=== PATIENT | female | born 1995 ===

== ENCOUNTER 2016-06-24 19:16 | Emergency (ER) | payer MEDICAID ==
[2016-06-24 20:16] VITALS: BMI 24.2
[2016-06-24 20:19] VITALS: RESP 18; TEMP 98.4
[2016-06-24 21:56] LABS: ADD MANUAL DIFF? NO
[2016-06-24 22:00] LABS: URINE BILIRUBIN NEGATIVE (NEGATIVE); URINE BLOOD NEGATIVE (NEGATIVE); URINE GLUCOSE (UA) NEGATIVE (NEGATIVE); URINE KETONE NEGATIVE (NEGATIVE); URINE LEUKOCYTE ESTERASE TRACE Leu/uL (NEGATIVE); URINE PROTEIN NEGATIVE mg/dL (<30 mg/dL)
[2016-06-24 22:04] LABS: BASO # 0.01 K/mm3 (0.0-2.0); BASO % 0.1 % (0.0-3.0); GRAN # 3.84 (1.4-6.5); GRAN % 57.6 % (50.0-68.0); HEMATOCRIT 35.6 % (36.0-48.0); LYMPH # 2.5 (1.2-3.4); LYMPH % 37.8 % (22.0-35.0); MEAN CELL VOLUME 78.2 fL (80.0-105.0); MEAN CORPUSCULAR HEMOGLOBIN 25.3 pg (25.0-35.0); MEAN CORPUSCULAR HGB CONC 32.3 g/dl (31.0-37.0); MEAN PLATELET VOLUME 10.5 fl (7.0-11.0); MONO # 0.3 (0.1-0.6); MONO % 4.5 % (1.0-6.0); PLATELET COUNT 242 10^3/uL (120.0-450.0); RED CELL DISTRIBUTION WIDTH 14.2 % (11.5-14.5); WHITE BLOOD COUNT 6.7 10^3/ul (4.5-11.0)
[2016-06-24 22:06] LABS: URINE APPEARANCE SLIGHT-CLOUDY (CLEAR); URINE COLOR YELLOW (YELLOW)
[2016-06-24 22:13] LABS: ALB/GLOB RATIO 1.2 (1.1-1.8); ALKALINE PHOSPHATASE 59 U/L (38-133); ALT/SGPT 50 U/L (7-56); AST/SGOT 47 U/L (15-39); BLOOD UREA NITROGEN 13 mg/dL (7-21); CALCIUM 9.4 mg/dL (8.4-10.5); CARBON DIOXIDE 27 mmol/L (21-33); CHLORIDE 100 mmol/L (98-107); GFR AFRICAN-AMERICAN > 60; GLUCOSE,RANDOM 89 mg/dL (70-110); LIPASE 87 U/L (23-300); POTASSIUM 4.3 mmol/L (3.6-5.0); SODIUM 138 mmol/L (132-148); TOTAL PROTEIN 8.2 g/dL (5.8-8.3)
[2016-06-24] MEDS ORDERED: Iohexol 350 MG/100 ML VIAL ONE (22:18)
[2016-06-24 22:46] LABS: URINE RBC 0 - 2 /hpf (0-2)
--- NOTE | 2016-06-25 01:27 | US ---
EXAM: US Pelvis Complete, Transabdominal. CLINICAL HISTORY: 20 years old, female; Pain; Pelvic pain; Additional info: Abd pain TECHNIQUE: Real-time transabdominal pelvic ultrasound (complete) with image documentation. COMPARISON: CT - ABD PELVIS IV CONTRAST ONLY 06/24/2016 10:42:56 PM FINDINGS: Uterus/cervix: Uterus measures 7.3 x 3.5 x 4.9 cm in size. No myometrial mass. Endometrium: 1.2 cm in thickness. Right ovary: 2.9 x 3.9 x 1.7 cm in size. 2.0 x 2.2 x 1.2 cm anechoic lesion. Small follicles. Normal flow. Left ovary: 2.8 x 1.6 x 2.4 cm in size. No mass. Small follicles. Normal flow. Free fluid: Trace free fluid within pelvis. Bladder: Unremarkable as visualized. IMPRESSION: 1. RIGHT ovarian cyst. 2. Incidental/non-acute findings are described above. EXAM: US Pelvis, Transvaginal. CLINICAL HISTORY: 20 years old, female; Pain; Pelvic pain; Additional info: Abd pain TECHNIQUE: Real-time transvaginal pelvic ultrasound (complete) with image documentation. Transvaginal imaging was used for better evaluation of the endometrium and adnexa. COMPARISON: CT - ABD PELVIS IV CONTRAST ONLY 06/24/2016 10:42:56 PM FINDINGS: Uterus/cervix: Uterus measures 7.3 x 3.5 x 4.9 cm in size. No myometrial mass. Endometrium: 1.2 cm in thickness. Right ovary: 2.9 x 3.9 x 1.7 cm in size. 2.0 x 2.2 x 1.2 cm anechoic lesion. Small follicles. Normal flow. Left ovary: 2.8 x 1.6 x 2.4 cm in size. No mass. Small follicles. Normal flow. Free fluid: Trace free fluid within pelvis. Bladder: Empty bladder which cannot be evaluated with this probe.
--- NOTE | 2016-06-25 01:52 | ED PDOC ---
Arrival/HPI - General Chief Complaint: Abdominal Pain Time Seen by Provider: 06/24/16 20:49 Historian: Patient - History of Present Illness Narrative History of Present Illness (Text): 06/25/16 01:43 20-year-old female presents today complaining of severe diffuse abdominal pain greatest in the lower quadrants of the abdomen. Patient also complaining of epigastric pain for the past 2 days. Patient states she was seen by her primary care physician last week for abdominal pain and took Imodium and since then she has been having hard stools. Patient also complaining of hemorrhoids. No chest pain or shortness of breath. Denies back pain. Denies fevers or chills. Denies vaginal discharge or vaginal bleeding. Denies urinary symptoms. Past Medical History - Provider Review Nursing Documentation Reviewed: Yes - Travel History Have you recently traveled outside [place] w/in the past 3 mons?: No - Past History Past History: No Previous - Infectious Disease Hx of Infectious Diseases: None - Tetanus Immunization Tetanus Immunization: Unknown - Cardiac Hx Cardiac Disorders: No - Pulmonary Hx Respiratory Disorders: No - Neurological Hx Neurological Disorder: No - HEENT Hx HEENT Disorder: No - Renal Hx Renal Disorder: No - Endocrine/Metabolic Hx Endocrine Disorders: No - Hematological/Oncological Hx Blood Disorders: No - Integumentary Hx Dermatological Disorder: No - Musculoskeletal/Rheumatological Hx Musculoskeletal Disorders: No - Gastrointestinal Hx Gastrointestinal Disorders: No - Genitourinary/Gynecological Hx Genitourinary Disorders: No - Psychiatric Hx Depression: No Hx Emotional Abuse: No Hx Physical Abuse: No Hx Substance Use: No - Past Surgical History Past Surgical History: No Previous - Surgical History Hx Tonsillectomy: Yes Other/Comment: devaited septum. - Anesthesia Hx Anesthesia: No Hx Anesthesia Reactions: No Hx Malignant Hyperthermia: No - Suicidal Assessment Feels Threatened In Home Enviroment: No Family/Social History - Physician Review Nursing Documentation Reviewed: Yes Family/Social History: Unknown Family HX Smoking Status: Never Smoked Hx Alcohol Use: No Hx Substance Use: No Allergies/Home Meds Allergies/Adverse Reactions: Allergies No Known Allergies Allergy (Verified 06/24/16 20:19) Review of Systems - Review of Systems Constitutional: absent: Fatigue, Fevers Respiratory: absent: SOB, Cough Cardiovascular: absent: Chest Pain, Palpitations Gastrointestinal: Abdominal Pain, Constipation. absent: Nausea, Vomiting Genitourinary Female: absent: Dysuria, Frequency, Hematuria Musculoskeletal: absent: Arthralgias, Back Pain, Neck Pain Skin: absent: Rash, Pruritis Neurological: absent: Headache, Dizziness Psychiatric: absent: Anxiety, Depression Physical Exam Vital Signs Reviewed: Yes Vital Signs Temp Pulse Resp BP Pulse Ox 06/25/16 00:30 60 18 131/63 99 06/24/16 20:15 98.4 F 85 18 104/69 100 Temperature: Afebrile Blood Pressure: Normal Pulse: Regular Respiratory Rate: Normal Appearance: Positive for: Well-Appearing, Non-Toxic, Comfortable Pain Distress: None Mental Status: Positive for: Alert and Oriented X 3 - Systems Exam Head: Present: Atraumatic Mouth: Present: Moist Mucous Membranes Neck: Present: Normal Range of Motion Respiratory/Chest: Present: Clear to Auscultation, Good Air Exchange. No: Respiratory Distress, Accessory Muscle Use Cardiovascular: Present: Regular Rate and Rhythm, Normal S1, S2. No: Murmurs Abdomen: Present: Tenderness (+ epigastric tenderness, + rlq and llq tenderness. ), Normal Bowel Sounds, Guarding. No: Distention, Peritoneal Signs , Rebound Rectal: Present: Hemorrhoids, Normal Rectal Tone. No: Gross Blood, Fissures Back: Present: Normal Inspection Neurological: Present: GCS=15, Speech Normal Skin: Present: Warm, Dry, Normal Color. No: Rashes Psychiatric: Present: Alert Medical Decision Making ED Course and Treatment: 06/25/16 01:45 Patient is nontoxic well appearing with stable vital signs presenting with upper and lower abdominal pain CBC wnl CMP wnl Lipase wnl Urinalysis wnl Ultrasound: FINDINGS: Uterus/cervix: Uterus measures 7.3 x 3.5 x 4.9 cm in size. No myometrial mass. Endometrium: 1.2 cm in thickness. Right ovary: 2.9 x 3.9 x 1.7 cm in size. 2.0 x 2.2 x 1.2 cm anechoic lesion. Small follicles. Normal flow. Left ovary: 2.8 x 1.6 x 2.4 cm in size. No mass. Small follicles. Normal flow. Free fluid: Trace free fluid within pelvis. Bladder: Unremarkable as visualized. IMPRESSION: 1. RIGHT ovarian cyst. 2. Incidental/non-acute findings are described above. EXAM: US Pelvis, Transvaginal. CT - ABD PELVIS IV CONTRAST ONLY 06/24/2016 10:42:56 PM FINDINGS: Uterus/cervix: Uterus measures 7.3 x 3.5 x 4.9 cm in size. No myometrial mass. Endometrium: 1.2 cm in thickness. Right ovary: 2.9 x 3.9 x 1.7 cm in size. 2.0 x 2.2 x 1.2 cm anechoic lesion. Small follicles. Normal flow. Left ovary: 2.8 x 1.6 x 2.4 cm in size. No mass. Small follicles. Normal flow. Free fluid: Trace free fluid within pelvis. Bladder: Empty bladder which cannot be evaluated with this probe. IMPRESSION: 1. RIGHT ovarian cyst. 2. Incidental/non-acute findings are described above. CAT scan: FINDINGS: Lower thorax: No acute findings. ABDOMEN: Liver: Unremarkable. No mass. Gallbladder and bile ducts: Unremarkable. No calcified stones. No ductal dilation. Pancreas: Unremarkable. No mass. No ductal dilation. Spleen: Unremarkable. No splenomegaly. Adrenals: Unremarkable. No mass. Kidneys and ureters: Unremarkable. No solid mass. No hydronephrosis. Stomach and bowel: Unremarkable. No obstruction. No mucosal thickening. Appendix: Normal appendix. PELVIS: Bladder: Unremarkable. No mass. Reproductive: Right 3.3 cm cystic structure in the expected location of the adnexa could reflect a follicle, cyst, or less likely cystic neoplasm. Clinical correlation recommended. ABDOMEN and PELVIS: Intraperitoneal space: Small pelvic fluid. No free air. Bones/joints: No acute fracture. No dislocation. Soft tissues: Unremarkable. Vasculature: Unremarkable. No abdominal aortic aneurysm. Lymph nodes: Unremarkable. No enlarged lymph nodes. IMPRESSION: 1. Right 3.3 cm cystic structure in the expected location of the adnexa could reflect a follicle, cyst, or less likely cystic neoplasm. Clinical correlation recommended. 2. Normal appendix. Patient reassessment: pt feeling better after pepcid; Discussed all results with patient in depth. advised increasing fluids advised increasing fiber. tylenol for pain. 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 return if symptoms worsen,persist or if new symptoms develop. Impression: Abdominal pain, ovarian cyst, hemorrhoid Tylenol every 4 hours as needed for pain Pepcid one tablet daily Follow-up with a GI doctor within the next 2 days Anusol apply twice daily as needed for external use only Increase fluids, increase fiber Follow up with primary care physician within the next 2 days Return immediately if symptoms worsen persist or if new symptoms develop: High fevers, increasing pain, vomiting, diarrhea or any other concerning symptoms develop - Lab Interpretations Lab Results: 06/24/16 21:50 06/24/16 21:50 Lab Results 06/24/16 21:50: WBC 6.7, RBC 4.55, Hgb 11.5 L, Hct 35.6 L, MCV 78.2 L, MCH 25.3 , MCHC 32.3, RDW 14.2, Plt Count 242, MPV 10.5, Gran % 57.6, Lymph % (Auto) 37.8 H, [place] % (Auto) 4.5, Eos % (Auto) 0.0 L, Baso % (Auto) 0.1, Gran # 3.84, Lymph # 2.5, [place] # 0.3, Eos # 0.0, Baso # 0.01, Sodium 138, Potassium 4.3, Chloride 100, Carbon Dioxide 27, Anion Gap 15, BUN 13, Creatinine 0.6, Est GFR ( Amer) > 60, Est GFR (Non-Af Amer) > 60, Random Glucose 89, Calcium 9.4, Total Bilirubin 1.0, AST 47 H, ALT 50, Alkaline Phosphatase 59, Total Protein 8.2, Albumin 4.5, Globulin 3.7, Albumin/Globulin Ratio 1.2, Lipase 87, Urine Color Yellow, Urine Appearance Slight-cloudy, Urine pH 7.0, Ur Specific [place] 1.015, Urine Protein Negative, Urine Glucose (UA) Negative, Urine Ketones Negative, Urine Blood Negative, Urine Nitrate Negative, Urine Bilirubin Negative , Urine Urobilinogen 1.0 H, Ur Leukocyte Esterase Trace H, Urine RBC 0 - 2, Urine WBC 1 - 3, Ur Epithelial Cells 4 - 5, Urine HCG, Qual Negative - RAD Interpretation Radiology Orders: 06/24/16 22:05 ABD & PELVIS IV CONTRAST ONLY [CT] Stat 06/24/16 23:34 TRANSVAGINAL [US] Stat - Medication Orders Current Medication Orders: Discontinued Medications Famotidine (Pepcid) 20 mg IVP STAT STA Stop: 06/24/16 21:27 Iohexol (Omnipaque 350 100 Ml) Confirm Administered Dose 350 mg .ROUTE .STK-MED ONE Stop: 06/24/16 22:19 Disposition/Present on Arrival - Present on Arrival Any Indicators Present on Arrival: No History of DVT/PE: No History of Uncontrolled Diabetes: No Urinary Catheter: No History of Decub. Ulcer: No History Surgical Site Infection Following: None - Disposition Have Diagnosis and Disposition been Completed?: Yes Diagnosis: Abdominal pain, Ovarian cyst, Acute hemorrhoid Disposition: HOME/ ROUTINE Disposition Time: 01:52 Patient Plan: Discharge Patient Problems: Current Active Problems Problem Status Diagnosed Abdominal pain Acute Acute hemorrhoid Acute Ovarian cyst Acute Condition: GOOD Discharge Instructions (ExitCare): Hemorrhoids (ED), Acute Abdominal Pain (ED) , Ovarian Cyst (ED) Additional Instructions: Tylenol every 4 hours as needed for pain Pepcid one tablet daily Follow-up with a GI doctor within the next 2 days Anusol apply twice daily as needed for external use only Increase fluids, increase fiber Follow up with primary care physician within the next 2 days Return immediately if symptoms worsen persist or if new symptoms develop: High fevers, increasing pain, vomiting, diarrhea or any other concerning symptoms develop Prescriptions: Hydrocortisone 2.5% (Rectal) [Anusol-HC] 1 applic [place] BID #1 tube Famotidine [Pepcid] 20 mg PO DAILY #30 tab Referrals: Ruddy Townsend DO [Staff Provider] - Follow up with primary Gisselle Menendez MD [Primary Care Provider] - Follow up with primary Lucho Burnett MD [Staff Provider] - Follow up with primary
[2016-06-25 02:33] VITALS: BP 107/65; PULSE 62; O2SAT 100
--- NOTE | 2016-06-25 09:30 | CT ---
PROCEDURE: CT Abdomen and Pelvis with contrast HISTORY: abd pain COMPARISON: Transvaginal ultrasound 06/25/2016 study noted TECHNIQUE: Contrast dose: 100 mL of Omnipaque 350 administered intravenously Radiation dose: Total exam DLP = 218 mGy-cm. FINDINGS: LOWER THORAX: Unremarkable. LIVER: Unremarkable. No gross lesion or ductal dilatation. GALLBLADDER AND BILE DUCTS: Unremarkable. PANCREAS: Unremarkable. No gross lesion or ductal dilatation. SPLEEN: Unremarkable. ADRENALS: Unremarkable. No mass. KIDNEYS AND URETERS: Unremarkable. No diffuse hydronephrosis. Minimal right intrarenal pelviectasis - -likely top-normal variant. No prox obstruction source suggested No solid mass. VASCULATURE: Unremarkable. No aortic aneurysm. BOWEL: Unremarkable. No obstruction. No gross mural thickening. APPENDIX: Normal appendix. PERITONEUM: Unremarkable. No free fluid. No free air. LYMPH NODES: Unremarkable. No enlarged lymph nodes. BLADDER: Unremarkable. REPRODUCTIVE: Bilateral adnexal hypodensities are prominent in the right hemipelvis measuring up to approximately 2.3 cm likely relating to a physiologic right ovarian cyst. Adjacent free fluid is present BONES: No acute fracture. Incidental bilateral sacroiliac joint sclerotic changes -iliac side predominating ; [id number] . OTHER FINDINGS: None. IMPRESSION: Probable right ovarian 2 to 2.5 cm physiological cyst with recent rupture/fluid leakage suggested . Similar findings suggested on prior transvaginal ultrasound study. 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
== END 2016-06-25 01:55 | disposition home or self-care (01) ==
LOC: ED 19:16
DX: N83.201 Unspecified ovarian cyst, right side (principal); K64.9 Unspecified hemorrhoids; R10.9 Unspecified abdominal pain
CPT/HCPCS: 74177; 76830; 80053; 81001; 83690; 84703; 85025; 87086; 99283; Q9967

== ENCOUNTER 2018-04-15 13:24 | Inpatient (IN) | payer MEDICAID ==
[2018-04-15 13:26] VITALS: BMI 24.2
[2018-04-15 14:50] LABS: URINE BILIRUBIN NEGATIVE (NEGATIVE); URINE BLOOD TRACE-LYSED (NEGATIVE); URINE GLUCOSE (UA) NEGATIVE (NEGATIVE); URINE LEUKOCYTE ESTERASE NEGATIVE Leu/uL (NEGATIVE); URINE PROTEIN NEGATIVE mg/dL (<30 mg/dL); URINE UROBILINOGEN 0.2 E.U./dL (<1 E.U./dL)
[2018-04-15] MEDS ORDERED: Sodium Chloride 0.9% 1,000 ML IV STA ×3 (14:58→19:10)
[2018-04-15 15:01] LABS: URINE APPEARANCE CLEAR (CLEAR); URINE COLOR YELLOW (YELLOW)
[2018-04-15 15:02] LABS: URINE BACTERIA MOD /hpf; URINE WBC 0 - 2 /hpf (0-6)
--- NOTE | 2018-04-15 15:14 | ED PDOC ---
Arrival/HPI - General Chief Complaint: Abdominal Pain Time Seen by Provider: 04/15/18 13:31 Historian: Patient - History of Present Illness Narrative History of Present Illness (Text): 04/15/18 14:31 22 y/o F, with past medical history of chronic constipation since 4 years, presents to the ED for evaluation of worsening nausea vomiting since this morning. Patient reports history of nausea for past year, which worsened this morning associated with 1 episode of vomiting. Patient additionally informs epigastric and left lower quadrant abdominal pain without any alleviating or worsening factors. Patient reports history of UTI and vaginal spotting, which improved once started on Macrobid recently. Patient denies any other somatic complaints. Patient denies any fevers, chills, headache, dizziness, chest pain, shortness of breath, dyspnea on exertion, cough, diarrhea, back pain, neck pain, or any other complaints. Time/Duration: 4-6 hours Symptom Onset: Gradual Symptom Course: Unchanged Activities at Onset: Light Context: Home Past Medical History - Provider Review Nursing Documentation Reviewed: Yes - Past History Past History: No Previous - Infectious Disease Hx of Infectious Diseases: None - Tetanus Immunization Tetanus Immunization: Unknown - Cardiac Hx Cardiac Disorders: No - Pulmonary Hx Respiratory Disorders: No - Neurological Hx Neurological Disorder: No - HEENT Hx HEENT Disorder: No - Renal Hx Renal Disorder: No - Endocrine/Metabolic Hx Endocrine Disorders: No - Hematological/Oncological Hx Blood Disorders: No - Integumentary Hx Dermatological Disorder: No - Musculoskeletal/Rheumatological Hx Musculoskeletal Disorders: No - Gastrointestinal Hx Gastrointestinal Disorders: No - Genitourinary/Gynecological Hx Genitourinary Disorders: No - Psychiatric Hx Depression: No Hx Emotional Abuse: No Hx Physical Abuse: No Hx Substance Use: No - Past Surgical History Past Surgical History: No Previous - Surgical History Hx Tonsillectomy: Yes Other/Comment: devaited septum. - Anesthesia Hx Anesthesia: No Hx Anesthesia Reactions: No Hx Malignant Hyperthermia: No - Suicidal Assessment Feels Threatened In Home Enviroment: No Family/Social History - Physician Review Nursing Documentation Reviewed: Yes Family/Social History: No Known Family HX Smoking Status: Never Smoked Hx Alcohol Use: No Hx Substance Use: No Allergies/Home Meds Allergies/Adverse Reactions: Allergies ketorolac [From Toradol] Allergy (Verified 04/15/18 16:19) SHORTNESS OF BREATH Review of Systems - Physician Review All systems were reviewed & negative as marked: Yes - Review of Systems Constitutional: absent: Fevers Eyes: absent: Vision Changes Respiratory: absent: SOB, Cough Cardiovascular: absent: Chest Pain Gastrointestinal: Abdominal Pain, Nausea, Vomiting Genitourinary Female: absent: Urine Output Changes Musculoskeletal: absent: Back Pain, Neck Pain Skin: absent: Rash Neurological: absent: Headache, Dizziness Psychiatric: absent: Anxiety Physical Exam Vital Signs Reviewed: Yes Vital Signs Temp Pulse Resp BP Pulse Ox 04/15/18 13:26 97.9 F 95 H 18 101/68 99 Temperature: Afebrile Blood Pressure: Normal Pulse: Regular Respiratory Rate: Normal Appearance: Positive for: Well-Appearing, Non-Toxic, Comfortable Pain Distress: None Mental Status: Positive for: Alert and Oriented X 3 - Systems Exam Head: Present: Atraumatic, Normocephalic Pupils: Present: PERRL Extroacular Muscles: Present: EOMI Conjunctiva: Present: Normal Mouth: Present: Moist Mucous Membranes Neck: Present: Normal Range of Motion Respiratory/Chest: Present: Clear to Auscultation, Good Air Exchange. No: Respiratory Distress, Accessory Muscle Use Cardiovascular: Present: Regular Rate and Rhythm, Normal S1, S2. No: Murmurs Abdomen: Present: Tenderness (Tenderness to palpation to epigastric region). No: Distention, Peritoneal Signs Back: Present: Normal Inspection. No: CVA Tenderness Upper Extremity: Present: Normal Inspection. No: Cyanosis, Edema Lower Extremity: Present: Normal Inspection. No: Edema Neurological: Present: GCS=15, CN II-XII Intact, Speech Normal Skin: Present: Warm, Dry, Normal Color. No: Rashes Psychiatric: Present: Alert, Oriented x 3, Normal Insight, Normal Concentration Medical Decision Making ED Course and Treatment: 04/15/18 14:30 Impression: 22 year old female presents to the ED for evaluation of abdominal pain, nausea and vomiting. Differential Diagnosis included but are not limited to: --Seizure --Cholecystitis --Ovarian cyst --Ovarian torsion Plan: -- Labs -- IV Fluids -- Toradol -- Zofran -- Urine Culture -- Urinalysis -- CT of head -- CT of Abdomen/Pelvis --Pelvic US --Zosyn --Surgery Consult -- Reassess and disposition Prior Visits: Notes and results from previous visits were reviewed. Progress Notes: 04/15/18 14:48 Upon re-evaluation after Toradol, patient expressed slight jerking movement at bedside with nystagmus and post-ictal period. Patient was able to answer questions slowly but correctly. 04/15/18 17:31 CT read reveals evidence of cholecystitis and bilateral ovarian cyst rupture. Pelvic US ordered. Zosyn ordered. Spoke to surgery resident who will come see the patient. 04/15/18 19:[address] Capone(general surgery) who accepts patient onto his service. - Lab Interpretations Lab Results: Urine Color Yellow (YELLOW) 04/15/18 14:30 Urine Appearance Clear (CLEAR) 04/15/18 14:30 Urine pH 7.0 (4.7-8.0) 04/15/18 14:30 Ur Specific [place] 1.020 (1.005-1.035) 04/15/18 14:30 Urine Protein Negative mg/dL (<30 mg/dL) 04/15/18 14:30 Urine Glucose (UA) Negative mg/dL (NEGATIVE) 04/15/18 14:30 Urine Ketones Negative mg/dL (NEGATIVE) 04/15/18 14:30 Urine Blood Trace-lysed (NEGATIVE) H 04/15/18 14:30 Urine Nitrate Negative (NEGATIVE) 04/15/18 14:30 Urine Bilirubin Negative (NEGATIVE) 04/15/18 14:30 Urine Urobilinogen 0.2 E.U./dL (<1 E.U./dL) 04/15/18 14:30 Ur Leukocyte Esterase Negative Foreign/uL (NEGATIVE) 04/15/18 14:30 Urine RBC 2 - 5 /hpf (0-2) H 04/15/18 14:30 Urine WBC 0 - 2 /hpf (0-6) 04/15/18 14:30 Ur Epithelial Cells 4 - 5 /hpf (0-5) 04/15/18 14:30 Urine Bacteria Mod /hpf (NONE) 04/15/18 14:30 Urine Other Uyeast /hpf 04/15/18 14:30 04/15/18 15:00 04/15/18 15:00 Lab Results 04/15/18 17:03: Urine Opiates Screen Negative, Urine Methadone Screen Negative, Ur Barbiturates Screen Negative, Ur Phencyclidine Scrn Negative, Ur Amphetamines Screen Negative, U Benzodiazepines Scrn Negative, U Oth Cocaine Metabols Negative, U Cannabinoids Screen Negative 04/15/18 15:00: Alcohol, Quantitative < 10 04/15/18 15:00: Salicylates < 1 L, Acetaminophen < 10.0 L 04/15/18 15:00: Sodium 139, Potassium 3.7, Chloride 105, Carbon Dioxide 25, Anion Gap 14, BUN 9, Creatinine 0.7, Est GFR ( Amer) > 60, Est GFR (Non- Af Amer) > 60, Random Glucose 74, Calcium 9.3, Magnesium 2.0, Total Bilirubin 0.8, AST 24, ALT 20, Alkaline Phosphatase 54, Total Protein 7.7, Albumin 4.5, Globulin 3.2, Albumin/Globulin Ratio 1.4 04/15/18 15:00: PT 13.6 H, INR 1.19, APTT 25.2 04/15/18 15:00: WBC 11.1 H, RBC 4.46, Hgb 10.3 L, Hct 33.7 L, MCV 75.6 L, MCH 23.1 L, MCHC 30.6 L, RDW 14.3, Plt Count 247, MPV 10.6, Gran % 45.6 L, Lymph % (Auto) 47.3 H, [place] % (Auto) 6.4 H, Eos % (Auto) 0.4 L, Baso % (Auto) 0.3, Gran # 5.09, Lymph # (Auto) 5.3 H, [place] # (Auto) 0.7 H, Eos # (Auto) 0.0, Baso # (Auto) 0.03 04/15/18 14:30: Urine Color Yellow, Urine Appearance Clear, Urine pH 7.0, Ur Specific [place] 1.020, Urine Protein Negative, Urine Glucose (UA) Negative, Urine Ketones Negative, Urine Blood Trace-lysed H, Urine Nitrate Negative, Urine Bilirubin Negative, Urine Urobilinogen 0.2, Ur Leukocyte Esterase Negative, Ur ine RBC 2 - 5 H, Urine WBC 0 - 2, Ur Epithelial Cells 4 - 5, Urine Bacteria Mod, Urine Other Uyeast I have reviewed the lab results: Yes - RAD Interpretation Radiology Orders: 04/15/18 14:58 HEAD W/O CONTRAST [CT] Stat 04/15/18 15:05 ABDOMEN & PELVIS [ABD & PELVIS IV CONTRAST ONLY] [CT] Stat - Medication Orders Current Medication Orders: Sodium Chloride (Sodium Chloride 0.9%) 1,000 mls @ 999 mls/hr IV .Q1H1M STA Stop: 04/15/18 15:58 Sodium Chloride (Sodium Chloride 0.9%) 1,000 mls @ 999 mls/hr IV .Q1H1M STA Stop: 04/15/18 16:06 Discontinued Medications Ketorolac Tromethamine (Toradol) 60 mg IM STAT STA Stop: 04/15/18 14:34 Last Admin: 04/15/18 14:43 Dose: 60 mg MAR Pain Assessment Document 04/15/18 14:43 EQ (Rec: 04/15/18 14:43 EQ [id number]) Pain Reassessment Is this a pain reassessment? No Sleep Is patient sleeping during reassessment? No Presence of Pain Presence of Pain Yes IM Administration Charges Document 04/15/18 14:43 EQ (Rec: 04/15/18 14:43 EQ [email or web address]) Charges for Administration # of IM Administrations 1 Ondansetron HCl (Zofran Odt) 4 mg PO STAT STA Stop: 04/15/18 14:34 Last Admin: 04/15/18 14:42 Dose: 4 mg - Scribe Statement The provider has reviewed the documentation as recorded by the Scribcammie Pak. All medical record entries made by the Scribe were at my direction and personally dictated by me. I have reviewed the chart and agree that the record accurately reflects my personal performance of the history, physical exam, medical decision making, and the department course for this patient. I have also personally directed, reviewed, and agree with the discharge instructions and disposition. Disposition/Present on Arrival - Present on Arrival Any Indicators Present on Arrival: No History of DVT/PE: No History of Uncontrolled Diabetes: No Urinary Catheter: No History of Decub. Ulcer: No History Surgical Site Infection Following: None - Disposition Have Diagnosis and Disposition been Completed?: Yes Diagnosis: Cholecystitis Disposition: HOSPITALIZED Disposition Time: 19:25 Patient Plan: Admission Condition: IMPROVED Forms: [employer] (Estonian)
[2018-04-15] MEDS ORDERED: Iohexol 300 100 ML IJ ONE ×2 (15:16→15:17)
[2018-04-15 15:19] LABS: BASO # 0.03 K/mm3 (0.0-2.0); BASO % 0.3 % (0.0-3.0); EOS % 0.4 % (1.5-5.0); GRAN # 5.09 (1.4-6.5); GRAN % 45.6 % (50.0-68.0); HEMOGLOBIN 10.3 g/dL (12.0-16.0); LYMPH # 5.3 (1.2-3.4); LYMPH % 47.3 % (22.0-35.0); MEAN CELL VOLUME 75.6 fl (80.0-105.0); MEAN CORPUSCULAR HEMOGLOBIN 23.1 pg (25.0-35.0); MEAN CORPUSCULAR HGB CONC 30.6 g/dl (31.0-37.0); MEAN PLATELET VOLUME 10.6 fl (7.0-11.0); MONO # 0.7 (0.1-0.6); MONO % 6.4 % (1.0-6.0); RBC 4.46 10^6/uL (3.5-6.1); RED CELL DISTRIBUTION WIDTH 14.3 % (11.5-14.5); WHITE BLOOD COUNT 11.1 10^3/uL (4.5-11.0)
[2018-04-15 15:33] LABS: ACETAMINOPHEN < 10.0 ug/ml (10.0-20.0); SALICYLATE < 1 mg/dL (2.0-20.0)
[2018-04-15 15:34] LABS: ALB/GLOB RATIO 1.4 (1.1-1.8); ALBUMIN 4.5 g/dL (3.0-4.8); ALT/SGPT 20 U/L (7-56); AST/SGOT 24 U/L (14-36); BLOOD UREA NITROGEN 9 mg/dL (7-21); CALCIUM 9.3 mg/dL (8.4-10.5); GFR NON-AFRICAN AMERICAN > 60; INR 1.19; PARTIAL THROMBOPLASTIN TIME 25.2 Seconds (25.1-36.5); PROTHROMBIN TIME 13.6 SECONDS (9.4-12.5)
--- NOTE | 2018-04-15 17:08 | CT ---
Date of service: 04/15/2018 PROCEDURE: CT HEAD WITHOUT CONTRAST. HISTORY: altered mental status COMPARISON: None available. TECHNIQUE: Axial computed tomography images were obtained through the head/brain without intravenous contrast. Radiation dose: Total exam DLP = 834.79 mGy-cm. This CT exam was performed using one or more of the following dose reduction techniques: Automated exposure control, adjustment of the mA and/or kV according to patient size, and/or use of iterative reconstruction technique. FINDINGS: HEMORRHAGE: No intracranial hemorrhage. BRAIN: No mass effect or edema. No atrophy or chronic microvascular ischemic changes.Please note that MRI with diffusion imaging is more sensitive in the detection of acute ischemic event. VENTRICLES: No hydrocephalus. CALVARIUM: Unremarkable. PARANASAL SINUSES: Unremarkable as visualized. No significant inflammatory changes. MASTOID AIR CELLS: Unremarkable as visualized. No inflammatory changes. OTHER FINDINGS: None. IMPRESSION: No acute intracranial pathology identified.
--- NOTE | 2018-04-15 17:16 | CT ---
Date of service: 04/15/2018 PROCEDURE: CT Abdomen and Pelvis with contrast HISTORY: abdominal pain, hypotensive COMPARISON: Abdomen and pelvis CT with contrast 06/24/2016. TECHNIQUE: Following the intravenous administration of iodinated contrast material, a CT examination of the abdomen and pelvis performed from the domes of the diaphragms to the symphysis pubis with reformatted datasets provided in axial, sagittal and coronal planes. Oral contrast was not administered as per referring physician request. Coronal and sagittal reformats were generated. Contrast dose: Omnipaque 300, 96 cc Radiation dose: Total exam DLP = 386.28 mGy-cm. This CT exam was performed using one or more of the following dose reduction techniques: Automated exposure control, adjustment of the mA and/or kV according to patient size, and/or use of iterative reconstruction technique. FINDINGS: LOWER THORAX: Limited subsegmental atelectasis bilateral bases. LIVER: The liver is normal in size with no discrete mass appreciated. Lucency surrounding the portal venous structure diffusely throughout the liver is indicates periportal edema which is a nonspecific finding. Intrahepatic bile ducts are likely not grossly dilated. GALLBLADDER AND BILE DUCTS: Gallbladder is mildly distended. No radiodense cholelithiasis is associated pericholecystic fluid is present however and cholecystitis is not excluded. Trace fluid is seen extending into the right para renal space. PANCREAS: Unremarkable. No gross lesion or ductal dilatation. SPLEEN: Unremarkable. ADRENALS: Unremarkable. No mass. KIDNEYS AND URETERS: Unremarkable. No hydronephrosis. No solid mass. VASCULATURE: Unremarkable. No aortic aneurysm. No aortic atherosclerotic calcification or mural plaque present. BOWEL: Evaluation of the gastrointestinal tract is limited due to the lack of oral contrast administration. Stomach is mildly distend with retained food. There is no bowel obstruction appreciated. A limited amount retained fecal material scattered throughout the colon. No prominent mural thickening is appreciated. APPENDIX: Normal appendix. PERITONEUM: Trace perihepatic ascites. No free air. LYMPH NODES: Unremarkable. No enlarged lymph nodes. BLADDER: Unremarkable. REPRODUCTIVE: There nonspecific inhomogeneous enhancement of the uterine parenchyma. A partially ruptured cyst identified at the left ovary possibly adjacent to an additional cyst with larger of the 2 cysts measuring 2.3 cm greatest dimension. There is evidence of a collapsed cyst at the right adnexal compartment as well an mild pelvic ascites may be a function of bilateral ovarian cyst rupture. BONES: No acute fracture. OTHER FINDINGS: None. IMPRESSION: 1. Moderate gallbladder distention with mild cyst mural thickening and moderate pericholecystic fluid suspicious for potential cholecystitis. No definite extrahepatic biliary tree dilatation appreciable. 2. Periportal edema is seen throughout the liver which is a nonspecific finding but could be a function of cholecystitis. Clinically correlate further. 3. Mild pelvic ascites likely as a function of bilateral ovarian cyst rupture. Please see discussion above. Lesser similar pattern was identified in prior CT 06/24/2016.
[2018-04-15] MEDS ORDERED: Piperacill/Tazo 4.5gm in NS 4.5 GM/100 ML BAG IVPB STA (17:29)
[2018-04-15 17:35] LABS: BARBITURATES, UR NEGATIVE (NEGATIVE); BENZODIAZEPINES, UR NEGATIVE (NEGATIVE); OPIATES, UR NEGATIVE (NEGATIVE); PHENCYCLIDINE, UR NEGATIVE (NEGATIVE)
--- NOTE | 2018-04-15 18:17 | US ---
Date of service: 04/15/2018 HISTORY: Left-sided pelvic pain COMPARISON: Comparison made with prior pelvic ultrasound 06/25/2016.. TECHNIQUE: Transabdominal sonographic evaluation of the pelvis performed. FINDINGS: UTERUS: Anteverted measuring approximately 8.8 x 4.2 x 4.9 cm. Normal in size and appearance. No fibroid or other mass lesion seen. ENDOMETRIUM: Endometrium is thickened measuring 1.7 cm. Correlation with serum beta HCG recommended to exclude current . Recommend follow-up pelvic ultrasound during the next menstrual cycle shortly following cessation of menses to assess for zoroastrian of normal endometrial thickness and to exclude endometrial pathology. CERVIX: No cervical abnormality identified. Cervix is closed. RIGHT OVARY: Measures 2.7 x 1.8 x 3.3 cm. No solid mass. Normal flow. LEFT OVARY: Measures 3.0 x 2.3 x 2.8 cm. No solid mass. Normal flow. FREE FLUID: Small amount of free fluid is present within the cul de sac.. OTHER FINDINGS: None. IMPRESSION: Thickened endometrium as above. Correlation with serum beta HCG to exclude current Small amount of free fluid is present within the pelvis. Recommend follow-up pelvic ultrasound during the next menstrual cycle shortly following cessation of menses to assess for zoroastrian of normal endometrial thickness and to exclude endometrial pathology.
--- NOTE | 2018-04-15 19:01 | CP.PCM.CON ---
History of Present Illness - History of Present Illness History of Present Illness: Surgery: Dr. Capone CC: Abd pain HPI: 22F w. hx of chronic constipation for past 4 yrs presents to ED w. diffuse abdominal pain more prominent in the epigastric area x 1 week. She states that the pain is aggravated by diet. No relation to fatty vs non-fatty foods. She states that she does have nausea, but this is only in the AM. She has forced herself to vomit in attempts to alleviate the nausea, but it has minimal effect. She states that she does have constipation and takes stool softeners intermittently. Last BM was this AM and it was normal. She denies F/C. LMP was March 30. She states that it was normal. She states that she does have a UTI for which she is taking macrobid. She is currently asymptomatic and has no urin jackie complaints. In ED she had CT-A/P which showed questionable findings of cholecystitis in addition to ruptured ovarian cysts. Also, pt developed seizure like activity in ED after receiving toradol. PMH: Constipation PSH: Tonsils, deviated septum Meds: MAR reviewed ALL: Toradol Social: no tobacco/drugs, social ETOH Fhx: Non-contributory Review of Systems - Review of Systems All systems: reviewed and no additional remarkable complaints except (HPI) Past Patient History - Infectious Disease Hx of Infectious Diseases: None - Tetanus Immunizations Tetanus Immunization: Unknown - Past Social History Smoking Status: Never Smoked - CARDIAC Hx Cardiac Disorders: No - PULMONARY Hx Respiratory Disorders: No - NEUROLOGICAL Hx Neurological Disorder: No - HEENT Hx HEENT Problems: No - RENAL Hx Chronic Kidney Disease: No - ENDOCRINE/METABOLIC Hx Endocrine Disorders: No - HEMATOLOGICAL/ONCOLOGICAL Hx Blood Disorders: No - INTEGUMENTARY Hx Dermatological Problems: No - MUSCULOSKELETAL/RHEUMATOLOGICAL Hx Musculoskeletal Disorders: No - GASTROINTESTINAL Hx Gastrointestinal Disorders: No - GENITOURINARY/GYNECOLOGICAL Hx Genitourinary Disorders: No - PSYCHIATRIC Hx Depression: No Hx Emotional Abuse: No Hx Physical Abuse: No Hx Substance Use: No - SURGICAL HISTORY Hx Tonsillectomy: Yes Other/Comment: devaited septum. - ANESTHESIA Hx Anesthesia: No Hx Anesthesia Reactions: No Hx Malignant Hyperthermia: No Meds Allergies/Adverse Reactions: Allergies Allergy/AdvReac Type Severity Reaction Status Date / Time ketorolac [From Toradol] Allergy SHORTNESS Verified 04/15/18 16:19 OF BREATH Physical Exam - Constitutional Appears: Non-toxic, No Acute Distress - Head Exam Head Exam: ATRAUMATIC, NORMOCEPHALIC - Eye Exam Eye Exam: EOMI - ENT Exam ENT Exam: Mucous Membranes Moist - Neck Exam Neck exam: Positive for: Full Rom - Respiratory Exam Respiratory Exam: NORMAL BREATHING PATTERN. absent: Accessory Muscle Use, Respiratory Distress - GI/Abdominal Exam GI & Abdominal Exam: Soft. absent: Distended, Firm, Guarding, Rebound, Rigid, T enderness - Extremities Exam Extremities exam: Negative for: calf tenderness, pedal pulses present - Neurological Exam Neurological exam: Alert, Oriented x3 - Psychiatric Exam Psychiatric exam: Normal Affect, Normal Mood - Skin Skin Exam: Dry, Normal Color, Warm Results - Vital Signs Recent Vital Signs: Last Vital Signs Temp 97.9 F 04/15/18 13:26 Pulse 107 H 04/15/18 15:30 Resp 18 04/15/18 15:30 BP 108/61 04/15/18 15:30 Pulse Ox 100 04/15/18 15:30 - Labs Result Diagrams: 04/15/18 15:00 04/15/18 15:00 Labs: Laboratory Results - last 24 hr 04/15/18 04/15/18 04/15/18 14:30 15:00 15:00 WBC 11.1 H RBC 4.46 Hgb 10.3 L Hct 33.7 L MCV 75.6 L MCH 23.1 L MCHC 30.6 L RDW 14.3 Plt Count 247 MPV 10.6 Gran % 45.6 L Lymph % (Auto) 47.3 H Tyrrell % (Auto) 6.4 H Eos % (Auto) 0.4 L Baso % (Auto) 0.3 Gran # 5.09 Lymph # (Auto) 5.3 H Tyrrell # (Auto) 0.7 H Eos # (Auto) 0.0 Baso # (Auto) 0.03 PT 13.6 H INR 1.19 APTT 25.2 Sodium Potassium Chloride Carbon Dioxide Anion Gap BUN Creatinine Est GFR ( Amer) Est GFR (Non-Af Amer) Random Glucose Calcium Magnesium Total Bilirubin AST ALT Alkaline Phosphatase Total Protein Albumin Globulin Albumin/Globulin Ratio Urine Color Yellow Urine Appearance Clear Urine pH 7.0 Ur Specific [place] 1.020 Urine Protein Negative Urine Glucose (UA) Negative Urine Ketones Negative Urine Blood Trace-lysed H Urine Nitrate Negative Urine Bilirubin Negative Urine Urobilinogen 0.2 Ur Leukocyte Esterase Negative Urine RBC 2 - 5 H Urine WBC 0 - 2 Ur Epithelial Cells 4 - 5 Urine Bacteria Mod Urine Other Uyeast Salicylates Urine Opiates Screen Urine Methadone Screen Acetaminophen Ur Barbiturates Screen Ur Phencyclidine Scrn Ur Amphetamines Screen U Benzodiazepines Scrn U Oth Cocaine Metabols U Cannabinoids Screen Alcohol, Quantitative 04/15/18 04/15/18 04/15/18 15:00 15:00 15:00 WBC RBC Hgb Hct MCV MCH MCHC RDW Plt Count MPV Gran % Lymph % (Auto) Tyrrell % (Auto) Eos % (Auto) Baso % (Auto) Gran # Lymph # (Auto) Tyrrell # (Auto) Eos # (Auto) Baso # (Auto) PT INR APTT Sodium 139 Potassium 3.7 Chloride 105 Carbon Dioxide 25 Anion Gap 14 BUN 9 Creatinine 0.7 Est GFR ( Amer) > 60 Est GFR (Non-Af Amer) > 60 Random Glucose 74 Calcium 9.3 Magnesium 2.0 Total Bilirubin 0.8 AST 24 ALT 20 Alkaline Phosphatase 54 Total Protein 7.7 Albumin 4.5 Globulin 3.2 Albumin/Globulin Ratio 1.4 Urine Color Urine Appearance Urine pH Ur Specific [place] Urine Protein Urine Glucose (UA) Urine Ketones Urine Blood Urine Nitrate Urine Bilirubin Urine Urobilinogen Ur Leukocyte Esterase Urine RBC Urine WBC Ur Epithelial Cells Urine Bacteria Urine Other Salicylates < 1 L Urine Opiates Screen Urine Methadone Screen Acetaminophen < 10.0 L Ur Barbiturates Screen Ur Phencyclidine Scrn Ur Amphetamines Screen U Benzodiazepines Scrn U Oth Cocaine Metabols U Cannabinoids Screen Alcohol, Quantitative < 10 04/15/18 17:03 WBC RBC Hgb Hct MCV MCH MCHC RDW Plt Count MPV Gran % Lymph % (Auto) Tyrrell % (Auto) Eos % (Auto) Baso % (Auto) Gran # Lymph # (Auto) Tyrrell # (Auto) Eos # (Auto) Baso # (Auto) PT INR APTT Sodium Potassium Chloride Carbon Dioxide Anion Gap BUN Creatinine Est GFR ( Amer) Est GFR (Non-Af Amer) Random Glucose Calcium Magnesium Total Bilirubin AST ALT Alkaline Phosphatase Total Protein Albumin Globulin Albumin/Globulin Ratio Urine Color Urine Appearance Urine pH Ur Specific [place] Urine Protein Urine Glucose (UA) Urine Ketones Urine Blood Urine Nitrate Urine Bilirubin Urine Urobilinogen Ur Leukocyte Esterase Urine RBC Urine WBC Ur Epithelial Cells Urine Bacteria Urine Other Salicylates Urine Opiates Screen Negative Urine Methadone Screen Negative Acetaminophen Ur Barbiturates Screen Negative Ur Phencyclidine Scrn Negative Ur Amphetamines Screen Negative U Benzodiazepines Scrn Negative U Oth Cocaine Metabols Negative U Cannabinoids Screen Negative Alcohol, Quantitative - Imaging and Cardiology CT scan - abdomen Status: Image reviewed by me, Report reviewed by me Assessment & Plan - Assessment and Plan (Free Text) Assessment: 22F w. abd pain, r/o cholecystitis -Abd U/S ordered, f/u results -Recommend zosyn -NPO, IVF -Lipase ordered, f/u results -will continue to follow, further recs pending lab/imaging results -d/w attending Mc [id number]
[2018-04-15] MEDS ORDERED: Magnesium Citrate Oral SOL (300 ml) PO ONE ×2 (19:46→23:30)
--- NOTE | 2018-04-15 20:07 | CP.PCM.HP ---
<Ruddy Bentley - Last Filed: 04/15/18 20:13> History of Present Illness - History of Present Illness History of Present Illness: Surgery: Dr. Capone CC: Abd pain HPI: 22F w. hx of chronic constipation for past 4 yrs presents to ED w. diffuse abdominal pain more prominent in the epigastric area x 1 week. She states that the pain is aggravated by diet. No relation to fatty vs non-fatty foods. She states that she does have nausea, but this is only in the AM. She has forced herself to vomit in attempts to alleviate the nausea, but it has minimal effect. She states that she does have constipation and takes stool softeners intermittently. Last BM was this AM and it was normal. She denies F/C. LMP was March 30. She states that it was normal. She states that she does have a UTI for which she is taking macrobid. She is currently asymptomatic and has no urinary complaints. In ED she had CT-A/P which showed questionable findings of cholecystitis in addition to ruptured ovarian cysts. Also, pt developed seizure like activity in ED after receiving toradol. PMH: Constipation PSH: Tonsils, deviated septum Meds: MAR reviewed ALL: Toradol Social: no tobacco/drugs, social ETOH Fhx: Non-contributory Present on Admission - Present on Admission Any Indicators Present on Admission: No Review of Systems - Review of Systems All systems: reviewed and no additional remarkable complaints except (HPI) Past Patient History - Infectious Disease Hx of Infectious Diseases: None - Tetanus Immunizations Tetanus Immunization: Unknown - Past Social History Smoking Status: Never Smoked - CARDIAC Hx Cardiac Disorders: No - PULMONARY Hx Respiratory Disorders: No - NEUROLOGICAL Hx Neurological Disorder: No - HEENT Hx HEENT Problems: No - RENAL Hx Chronic Kidney Disease: No - ENDOCRINE/METABOLIC Hx Endocrine Disorders: No - HEMATOLOGICAL/ONCOLOGICAL Hx Blood Disorders: No - INTEGUMENTARY Hx Dermatological Problems: No - MUSCULOSKELETAL/RHEUMATOLOGICAL Hx Musculoskeletal Disorders: No - GASTROINTESTINAL Hx Gastrointestinal Disorders: No - GENITOURINARY/GYNECOLOGICAL Hx Genitourinary Disorders: No - PSYCHIATRIC Hx Depression: No Hx Emotional Abuse: No Hx Physical Abuse: No Hx Substance Use: No - SURGICAL HISTORY Hx Tonsillectomy: Yes Other/Comment: devaited septum. - ANESTHESIA Hx Anesthesia: No Hx Anesthesia Reactions: No Hx Malignant Hyperthermia: No Meds Allergies/Adverse Reactions: Allergies Allergy/AdvReac Type Severity Reaction Status Date / Time ketorolac [From Toradol] Allergy SHORTNESS Verified 04/15/18 16:19 OF BREATH Physical Exam - Constitutional Appears: Non-toxic, No Acute Distress - Head Exam Head Exam: ATRAUMATIC, NORMOCEPHALIC - Eye Exam Eye Exam: EOMI - ENT Exam ENT Exam: Mucous Membranes Moist - Neck Exam Neck exam: Positive for: Full Rom, Normal Inspection - Respiratory Exam Respiratory Exam: NORMAL BREATHING PATTERN. absent: Accessory Muscle Use, Respiratory Distress - GI/Abdominal Exam GI & Abdominal Exam: Soft. absent: Distended, Firm, Guarding, Rigid, Tenderness - Extremities Exam Extremities exam: Negative for: calf tenderness, pedal pulses present - Neurological Exam Neurological exam: Alert, Oriented x3 - Psychiatric Exam Psychiatric exam: Normal Affect, Normal Mood Results - Vital Signs Recent Vital Signs: Last Vital Signs Temp 97.9 F 04/15/18 13:26 Pulse 107 H 04/15/18 15:30 Resp 18 04/15/18 15:30 BP 108/61 04/15/18 15:30 Pulse Ox 100 04/15/18 15:30 - Labs Result Diagrams: 04/15/18 15:00 04/15/18 15:00 Labs: Laboratory Results - last 24 hr 04/15/18 04/15/18 04/15/18 14:30 15:00 15:00 WBC 11.1 H RBC 4.46 Hgb 10.3 L Hct 33.7 L MCV 75.6 L MCH 23.1 L MCHC 30.6 L RDW 14.3 Plt Count 247 MPV 10.6 Gran % 45.6 L Lymph % (Auto) 47.3 H Mayes % (Auto) 6.4 H Eos % (Auto) 0.4 L Baso % (Auto) 0.3 Gran # 5.09 Lymph # (Auto) 5.3 H Mayes # (Auto) 0.7 H Eos # (Auto) 0.0 Baso # (Auto) 0.03 PT 13.6 H INR 1.19 APTT 25.2 Sodium Potassium Chloride Carbon Dioxide Anion Gap BUN Creatinine Est GFR ( Amer) Est GFR (Non-Af Amer) Random Glucose Calcium Magnesium Total Bilirubin AST ALT Alkaline Phosphatase Total Protein Albumin Globulin Albumin/Globulin Ratio Lipase Urine Color Yellow Urine Appearance Clear Urine pH 7.0 Ur Specific [place] 1.020 Urine Protein Negative Urine Glucose (UA) Negative Urine Ketones Negative Urine Blood Trace-lysed H Urine Nitrate Negative Urine Bilirubin Negative Urine Urobilinogen 0.2 Ur Leukocyte Esterase Negative Urine RBC 2 - 5 H Urine WBC 0 - 2 Ur Epithelial Cells 4 - 5 Urine Bacteria Mod Urine Other Uyeast Salicylates Urine Opiates Screen Urine Methadone Screen Acetaminophen Ur Barbiturates Screen Ur Phencyclidine Scrn Ur Amphetamines Screen U Benzodiazepines Scrn U Oth Cocaine Metabols U Cannabinoids Screen Alcohol, Quantitative 04/15/18 04/15/18 04/15/18 15:00 15:00 15:00 WBC RBC Hgb Hct MCV MCH MCHC RDW Plt Count MPV Gran % Lymph % (Auto) Mayes % (Auto) Eos % (Auto) Baso % (Auto) Gran # Lymph # (Auto) Mayes # (Auto) Eos # (Auto) Baso # (Auto) PT INR APTT Sodium 139 Potassium 3.7 Chloride 105 Carbon Dioxide 25 Anion Gap 14 BUN 9 Creatinine 0.7 Est GFR ( Amer) > 60 Est GFR (Non-Af Amer) > 60 Random Glucose 74 Calcium 9.3 Magnesium 2.0 Total Bilirubin 0.8 AST 24 ALT 20 Alkaline Phosphatase 54 Total Protein 7.7 Albumin 4.5 Globulin 3.2 Albumin/Globulin Ratio 1.4 Lipase Urine Color Urine Appearance Urine pH Ur Specific [place] Urine Protein Urine Glucose (UA) Urine Ketones Urine Blood Urine Nitrate Urine Bilirubin Urine Urobilinogen Ur Leukocyte Esterase Urine RBC Urine WBC Ur Epithelial Cells Urine Bacteria Urine Other Salicylates < 1 L Urine Opiates Screen Urine Methadone Screen Acetaminophen < 10.0 L Ur Barbiturates Screen Ur Phencyclidine Scrn Ur Amphetamines Screen U Benzodiazepines Scrn U Oth Cocaine Metabols U Cannabinoids Screen Alcohol, Quantitative < 10 04/15/18 04/15/18 15:00 17:03 WBC RBC Hgb Hct MCV MCH MCHC RDW Plt Count MPV Gran % Lymph % (Auto) Mayes % (Auto) Eos % (Auto) Baso % (Auto) Gran # Lymph # (Auto) Mayes # (Auto) Eos # (Auto) Baso # (Auto) PT INR APTT Sodium Potassium Chloride Carbon Dioxide Anion Gap BUN Creatinine Est GFR ( Amer) Est GFR (Non-Af Amer) Random Glucose Calcium Magnesium Total Bilirubin AST ALT Alkaline Phosphatase Total Protein Albumin Globulin Albumin/Globulin Ratio Lipase 104 Urine Color Urine Appearance Urine pH Ur Specific [place] Urine Protein Urine Glucose (UA) Urine Ketones Urine Blood Urine Nitrate Urine Bilirubin Urine Urobilinogen Ur Leukocyte Esterase Urine RBC Urine WBC Ur Epithelial Cells Urine Bacteria Urine Other Salicylates Urine Opiates Screen Negative Urine Methadone Screen Negative Acetaminophen Ur Barbiturates Screen Negative Ur Phencyclidine Scrn Negative Ur Amphetamines Screen Negative U Benzodiazepines Scrn Negative U Oth Cocaine Metabols Negative U Cannabinoids Screen Negative Alcohol, Quantitative - Imaging and Cardiology CT scan - abdomen Status: Image reviewed by me, Report reviewed by me US - abdomen Status: Image reviewed by me Assessment & Plan - Assessment and Plan (Free Text) Assessment: 22F w. hx of constipation presenting w. abd pain, r/o cholecystitis. Pt developed seizure like activity in ER after receiving toradol -Imaging reviewed -Zosyn -NPO, IVF -Mag Citrate -Zofran -Lipase ordered, f/u results -Neurology consulted for seizure like activity -Plan for OR tomorrow for lap elroy -d/w attending Zemaitis PGY4 Decision To Admit - Pt Status Changed To: Hospital Disposition Of: Inpatient Admission - Admit Certification Admit to Inpatient:: After my assessment, the patient will require hospitalization for at least two midnights. This is because of the severity of symptoms shown, intensity of services needed, and/or the medical risk in this patient being treated as an outpatient. - . Bed Request Type: Med/Surg <Elias Capone - Last Filed: 04/16/18 11:46> Results - Vital Signs Recent Vital Signs: Last Vital Signs Temp 98.3 F 04/16/18 10:30 Pulse 86 04/16/18 10:30 Resp 20 04/16/18 10:30 BP 103/56 L 04/16/18 10:30 Pulse Ox 96 04/16/18 10:30 - Labs Result Diagrams: 04/16/18 06:35 04/16/18 06:35 Labs: Laboratory Results - last 24 hr 04/15/18 04/15/18 04/15/18 14:30 15:00 15:00 WBC 11.1 H RBC 4.46 Hgb 10.3 L Hct 33.7 L MCV 75.6 L MCH 23.1 L MCHC 30.6 L RDW 14.3 Plt Count 247 MPV 10.6 Gran % 45.6 L Lymph % (Auto) 47.3 H Mayes % (Auto) 6.4 H Eos % (Auto) 0.4 L Baso % (Auto) 0.3 Gran # 5.09 Lymph # (Auto) 5.3 H Mayes # (Auto) 0.7 H Eos # (Auto) 0.0 Baso # (Auto) 0.03 PT 13.6 H INR 1.19 APTT 25.2 Sodium Potassium Chloride Carbon Dioxide Anion Gap BUN Creatinine Est GFR ( Amer) Est GFR (Non-Af Amer) Random Glucose Calcium Magnesium Total Bilirubin AST ALT Alkaline Phosphatase Total Protein Albumin Globulin Albumin/Globulin Ratio Lipase Urine Color Yellow Urine Appearance Clear Urine pH 7.0 Ur Specific [place] 1.020 Urine Protein Negative Urine Glucose (UA) Negative Urine Ketones Negative Urine Blood Trace-lysed H Urine Nitrate Negative Urine Bilirubin Negative Urine Urobilinogen 0.2 Ur Leukocyte Esterase Negative Urine RBC 2 - 5 H Urine WBC 0 - 2 Ur Epithelial Cells 4 - 5 Urine Bacteria Mod Urine Other Uyeast Salicylates Urine Opiates Screen Urine Methadone Screen Acetaminophen Ur Barbiturates Screen Ur Phencyclidine Scrn Ur Amphetamines Screen U Benzodiazepines Scrn U Oth Cocaine Metabols U Cannabinoids Screen Alcohol, Quantitative 04/15/18 04/15/18 04/15/18 15:00 15:00 15:00 WBC RBC Hgb Hct MCV MCH MCHC RDW Plt Count MPV Gran % Lymph % (Auto) Mayes % (Auto) Eos % (Auto) Baso % (Auto) Gran # Lymph # (Auto) Mayes # (Auto) Eos # (Auto) Baso # (Auto) PT INR APTT Sodium 139 Potassium 3.7 Chloride 105 Carbon Dioxide 25 Anion Gap 14 BUN 9 Creatinine 0.7 Est GFR ( Amer) > 60 Est GFR (Non-Af Amer) > 60 Random Glucose 74 Calcium 9.3 Magnesium 2.0 Total Bilirubin 0.8 AST 24 ALT 20 Alkaline Phosphatase 54 Total Protein 7.7 Albumin 4.5 Globulin 3.2 Albumin/Globulin Ratio 1.4 Lipase Urine Color Urine Appearance Urine pH Ur Specific [place] Urine Protein Urine Glucose (UA) Urine Ketones Urine Blood Urine Nitrate Urine Bilirubin Urine Urobilinogen Ur Leukocyte Esterase Urine RBC Urine WBC Ur Epithelial Cells Urine Bacteria Urine Other Salicylates < 1 L Urine Opiates Screen Urine Methadone Screen Acetaminophen < 10.0 L Ur Barbiturates Screen Ur Phencyclidine Scrn Ur Amphetamines Screen U Benzodiazepines Scrn U Oth Cocaine Metabols U Cannabinoids Screen Alcohol, Quantitative < 10 04/15/18 04/15/18 04/16/18 15:00 17:03 06:35 WBC 6.1 D RBC 4.16 Hgb 9.5 L Hct 31.6 L MCV 76.0 L MCH 22.8 L MCHC 30.1 L RDW 14.4 Plt Count 191 MPV 10.7 Gran % 67.7 Lymph % (Auto) 26.0 Mayes % (Auto) 5.8 Eos % (Auto) 0.2 L Baso % (Auto) 0.3 Gran # 4.12 Lymph # (Auto) 1.6 Mayes # (Auto) 0.4 Eos # (Auto) 0.0 Baso # (Auto) 0.02 PT INR APTT Sodium Potassium Chloride Carbon Dioxide Anion Gap BUN Creatinine Est GFR ( Amer) Est GFR (Non-Af Amer) Random Glucose Calcium Magnesium Total Bilirubin AST ALT Alkaline Phosphatase Total Protein Albumin Globulin Albumin/Globulin Ratio Lipase 104 Urine Color Urine Appearance Urine pH Ur Specific [place] Urine Protein Urine Glucose (UA) Urine Ketones Urine Blood Urine Nitrate Urine Bilirubin Urine Urobilinogen Ur Leukocyte Esterase Urine RBC Urine WBC Ur Epithelial Cells Urine Bacteria Urine Other Salicylates Urine Opiates Screen Negative Urine Methadone Screen Negative Acetaminophen Ur Barbiturates Screen Negative Ur Phencyclidine Scrn Negative Ur Amphetamines Screen Negative U Benzodiazepines Scrn Negative U Oth Cocaine Metabols Negative U Cannabinoids Screen Negative Alcohol, Quantitative 04/16/18 04/16/18 06:35 06:35 WBC RBC Hgb Hct MCV MCH MCHC RDW Plt Count MPV Gran % Lymph % (Auto) Mayes % (Auto) Eos % (Auto) Baso % (Auto) Gran # Lymph # (Auto) Mayes # (Auto) Eos # (Auto) Baso # (Auto) PT 13.2 H INR 1.14 APTT 28.1 Sodium 141 Potassium 3.8 Chloride 110 H Carbon Dioxide 26 Anion Gap 10 BUN 5 L Creatinine 0.5 L Est GFR ( Amer) > 60 Est GFR (Non-Af Amer) > 60 Random Glucose 86 Calcium 8.5 Magnesium Total Bilirubin 0.7 AST 48 H D ALT 64 H Alkaline Phosphatase 56 Total Protein 6.8 Albumin 3.9 Globulin 2.9 Albumin/Globulin Ratio 1.3 Lipase Urine Color Urine Appearance Urine pH Ur Specific [place] Urine Protein Urine Glucose (UA) Urine Ketones Urine Blood Urine Nitrate Urine Bilirubin Urine Urobilinogen Ur Leukocyte Esterase Urine RBC Urine WBC Ur Epithelial Cells Urine Bacteria Urine Other Salicylates Urine Opiates Screen Urine Methadone Screen Acetaminophen Ur Barbiturates Screen Ur Phencyclidine Scrn Ur Amphetamines Screen U Benzodiazepines Scrn U Oth Cocaine Metabols U Cannabinoids Screen Alcohol, Quantitative Assessment & Plan - Assessment and Plan (Free Text) Plan: Seen and examined independent of resident staff. Imaging personally reviewed. Agree with above. 22 F recurrent symptomatic cholelithiasis now with acute cholecystitis. Rec laparoscopic cholecystectomy. Risks and benefits or surgery discussed, including but not limited to , bleeding, infection, bile leak, bile duct or bowel injury, VTE, and need for open surgery. Patient understands and informed consent signed at bedside.
[2018-04-15] MEDS: Sodium Chloride 0.9% 1,000 ML IV SCH (22:59)
[2018-04-15] MEDS: Piperacill/Tazo 4.5gm in NS 4.5 GM/100 ML BAG IVPB SCH (23:24)
[2018-04-15] MEDS ORDERED: Influenza Vaccine 60 mcg/0.5 mL SYR (4YR UP) IM ONE (23:53)
[2018-04-16] MEDS: Piperacill/Tazo 4.5gm in NS 4.5 GM/100 ML BAG IVPB SCH (06:32)
[2018-04-16 07:05] LABS: INR 1.14; PARTIAL THROMBOPLASTIN TIME 28.1 Seconds (25.1-36.5); PROTHROMBIN TIME 13.2 SECONDS (9.4-12.5)
[2018-04-16 07:12] LABS: BASO # 0.02 K/mm3 (0.0-2.0); BASO % 0.3 % (0.0-3.0); EOS % 0.2 % (1.5-5.0); GRAN # 4.12 (1.4-6.5); GRAN % 67.7 % (50.0-68.0); HEMOGLOBIN 9.5 g/dL (12.0-16.0); LYMPH # 1.6 (1.2-3.4); MEAN CORPUSCULAR HEMOGLOBIN 22.8 pg (25.0-35.0); MEAN CORPUSCULAR HGB CONC 30.1 g/dl (31.0-37.0); MEAN PLATELET VOLUME 10.7 fl (7.0-11.0); MONO # 0.4 (0.1-0.6); MONO % 5.8 % (1.0-6.0); RBC 4.16 10^6/uL (3.5-6.1); RED CELL DISTRIBUTION WIDTH 14.4 % (11.5-14.5); WHITE BLOOD COUNT 6.1 10^3/uL (4.5-11.0)
[2018-04-16 07:48] LABS: ALB/GLOB RATIO 1.3 (1.1-1.8); ALBUMIN 3.9 g/dL (3.0-4.8); ALT/SGPT 64 U/L (7-56); AST/SGOT 48 U/L (14-36); BLOOD UREA NITROGEN 5 mg/dL (7-21); CALCIUM 8.5 mg/dL (8.4-10.5); GFR NON-AFRICAN AMERICAN > 60
--- NOTE | 2018-04-16 09:18 | US ---
HISTORY: cholecystitis COMPARISON: CT abdomen and pelvis with IV contrast performed 04/15/18 TECHNIQUE: Sonographic evaluation of the abdomen. FINDINGS: LIVER: Measures approximately 13.7 x 9.5 x 15.6 cm. Rim peers within normal limits of echotexture. Trace perihepatic ascites. Periportal edema seen to better advantage on CT scan performed the same day. No focal hepatic mass identified. The main portal vein appears patent with normal directional flow. No intrahepatic bile duct dilatation. GALLBLADDER: Gallbladder contracted. No gallstones. Gallbladder wall thickening/edema measuring approximately 1.2 cm in diameter. Negative sonographic Hayward's sign as assessed by the fisher seal. COMMON BILE DUCT: Measures 2 mm. PANCREAS: Not well visualized. RIGHT KIDNEY: Measures 9.5 x 4.3 x 4.4 cm. No obstructing calculus or hydronephrosis identified. LEFT KIDNEY: Measures 11.0 x 5.1 x 4.8cm. No obstructing calculus or hydronephrosis identified. SPLEEN: Measures approximately 11.2 cm. 1.3 cm splenule. AORTA: Limited views appear unremarkable. IVC: Limited views appear unremarkable. OTHER FINDINGS: None. IMPRESSION: Gallbladder wall thickening/edema measuring up to approximately 1.2 cm in diameter. Gallbladder contracted. Correlate clinically. Trace perihepatic ascites. Preliminary impression was provided by [employer].
[2018-04-16] MEDS ORDERED: Bupivacaine 0.25% 50 ML INJ IJ ONE (10:34)
[2018-04-16] MEDS ORDERED: Bupivacaine 0.5% 50 ML IJ ONE (10:35)
[2018-04-16] MEDS ORDERED: Iohexol 240 (50 ml) ONE (10:35)
--- NOTE | 2018-04-16 11:09 | CP.PCM.CON ---
History of Present Illness - History of Present Illness History of Present Illness: Neurology Consultation (Dr. Toussaint's Service) CC: Seizure like activity s/p Ketorolac Administration/Cholecystitis HPI: Ms. Alaniz is a 22 year old female with a past medical history significant for chronic constipation who presented with diffuse abdominal pain. Neurology was consulted after patient had seizure like activity after administration of [place] [facility] [place] PMH: As stated above PSH: Deviated Septum Repair, Tonsillectomy Family History: Denies Social History: Denies any tobacco or illicit drug abuse; Social alcohol con sumption Allergies: Ketorolac Home Medications: As per MAR Review of Systems - Review of Systems Review of Systems: As stated in HPI, otherwise negative Past Patient History - Infectious Disease Hx of Infectious Diseases: None - Tetanus Immunizations Tetanus Immunization: Unknown - Past Social History Smoking Status: Never Smoked - CARDIAC Hx Cardiac Disorders: No - PULMONARY Hx Respiratory Disorders: No - NEUROLOGICAL Hx Neurological Disorder: No - HEENT Hx HEENT Problems: No - RENAL Other/Comment: UTI - ENDOCRINE/METABOLIC Hx Endocrine Disorders: No - HEMATOLOGICAL/ONCOLOGICAL Hx Blood Transfusions: No Hx Blood Transfusion Reaction: No - INTEGUMENTARY Hx Dermatological Problems: No - MUSCULOSKELETAL/RHEUMATOLOGICAL Hx Falls: No - GASTROINTESTINAL Other/Comment: CHRONIC CONSTIPATION - GENITOURINARY/GYNECOLOGICAL Hx Genitourinary Disorders: No - PSYCHIATRIC Hx Depression: No Hx Emotional Abuse: No Hx Physical Abuse: No Hx Substance Use: No - SURGICAL HISTORY Hx Surgeries: Yes - ANESTHESIA Hx Anesthesia Reactions: No Hx Malignant Hyperthermia: No Meds Allergies/Adverse Reactions: Allergies Allergy/AdvReac Type Severity Reaction Status Date / Time ketorolac [From Toradol] Allergy SHORTNESS Verified 04/15/18 16:19 OF BREATH - Medications Medications: Current Medications Acetaminophen (Tylenol 325mg Tab) 650 mg PO Q6 PRN PRN Reason: Pain, Mild (1-3) Docusate Sodium (Colace) 100 mg PO BID CHAPARRO Sodium Chloride (Sodium Chloride 0.9%) 1,000 mls @ 100 mls/hr IV .Q10H CHAPARRO Last Admin: 04/15/18 22:59 Dose: 100 mls/hr Ondansetron HCl (Zofran Inj) 4 mg IVP Q6 PRN PRN Reason: Nausea/Vomiting Results - Vital Signs Recent Vital Signs: Last Vital Signs Temp 98 F 04/16/18 06:00 Pulse 82 04/16/18 06:00 Resp 18 04/16/18 06:00 BP 99/62 L 04/16/18 06:00 Pulse Ox 100 04/16/18 06:00 - Labs Result Diagrams: 04/16/18 06:35 04/16/18 06:35 Labs: Laboratory Results - last 24 hr 04/15/18 04/15/18 04/15/18 14:30 15:00 15:00 WBC 11.1 H RBC 4.46 Hgb 10.3 L Hct 33.7 L MCV 75.6 L MCH 23.1 L MCHC 30.6 L RDW 14.3 Plt Count 247 MPV 10.6 Gran % 45.6 L Lymph % (Auto) 47.3 H Baker % (Auto) 6.4 H Eos % (Auto) 0.4 L Baso % (Auto) 0.3 Gran # 5.09 Lymph # (Auto) 5.3 H Baker # (Auto) 0.7 H Eos # (Auto) 0.0 Baso # (Auto) 0.03 PT 13.6 H INR 1.19 APTT 25.2 Sodium Potassium Chloride Carbon Dioxide Anion Gap BUN Creatinine Est GFR ( Amer) Est GFR (Non-Af Amer) Random Glucose Calcium Magnesium Total Bilirubin AST ALT Alkaline Phosphatase Total Protein Albumin Globulin Albumin/Globulin Ratio Lipase Urine Color Yellow Urine Appearance Clear Urine pH 7.0 Ur Specific [place] 1.020 Urine Protein Negative Urine Glucose (UA) Negative Urine Ketones Negative Urine Blood Trace-lysed H Urine Nitrate Negative Urine Bilirubin Negative Urine Urobilinogen 0.2 Ur Leukocyte Esterase Negative Urine RBC 2 - 5 H Urine WBC 0 - 2 Ur Epithelial Cells 4 - 5 Urine Bacteria Mod Urine Other Uyeast Salicylates Urine Opiates Screen Urine Methadone Screen Acetaminophen Ur Barbiturates Screen Ur Phencyclidine Scrn Ur Amphetamines Screen U Benzodiazepines Scrn U Oth Cocaine Metabols U Cannabinoids Screen Alcohol, Quantitative 04/15/18 04/15/18 04/15/18 15:00 15:00 15:00 WBC RBC Hgb Hct MCV MCH MCHC RDW Plt Count MPV Gran % Lymph % (Auto) [place] % (Auto) Eos % (Auto) Baso % (Auto) Gran # Lymph # (Auto) [place] # (Auto) Eos # (Auto) Baso # (Auto) PT INR APTT Sodium 139 Potassium 3.7 Chloride 105 Carbon Dioxide 25 Anion Gap 14 BUN 9 Creatinine 0.7 Est GFR ( Amer) > 60 Est GFR (Non-Af Amer) > 60 Random Glucose 74 Calcium 9.3 Magnesium 2.0 Total Bilirubin 0.8 AST 24 ALT 20 Alkaline Phosphatase 54 Total Protein 7.7 Albumin 4.5 Globulin 3.2 Albumin/Globulin Ratio 1.4 Lipase Urine Color Urine Appearance Urine pH Ur Specific [place] Urine Protein Urine Glucose (UA) Urine Ketones Urine Blood Urine Nitrate Urine Bilirubin Urine Urobilinogen Ur Leukocyte Esterase Urine RBC Urine WBC Ur Epithelial Cells Urine Bacteria Urine Other Salicylates < 1 L Urine Opiates Screen Urine Methadone Screen Acetaminophen < 10.0 L Ur Barbiturates Screen Ur Phencyclidine Scrn Ur Amphetamines Screen U Benzodiazepines Scrn U Oth Cocaine Metabols U Cannabinoids Screen Alcohol, Quantitative < 10 04/15/18 04/15/18 04/16/18 15:00 17:03 06:35 WBC 6.1 D RBC 4.16 Hgb 9.5 L Hct 31.6 L MCV 76.0 L MCH 22.8 L MCHC 30.1 L RDW 14.4 Plt Count 191 MPV 10.7 Gran % 67.7 Lymph % (Auto) 26.0 [place] % (Auto) 5.8 Eos % (Auto) 0.2 L Baso % (Auto) 0.3 Gran # 4.12 Lymph # (Auto) 1.6 [place] # (Auto) 0.4 Eos # (Auto) 0.0 Baso # (Auto) 0.02 PT INR APTT Sodium Potassium Chloride Carbon Dioxide Anion Gap BUN Creatinine Est GFR ( Amer) Est GFR (Non-Af Amer) Random Glucose Calcium Magnesium Total Bilirubin AST ALT Alkaline Phosphatase Total Protein Albumin Globulin Albumin/Globulin Ratio Lipase 104 Urine Color Urine Appearance Urine pH Ur Specific [place] Urine Protein Urine Glucose (UA) Urine Ketones Urine Blood Urine Nitrate Urine Bilirubin Urine Urobilinogen Ur Leukocyte Esterase Urine RBC Urine WBC Ur Epithelial Cells Urine Bacteria Urine Other Salicylates Urine Opiates Screen Negative Urine Methadone Screen Negative Acetaminophen Ur Barbiturates Screen Negative Ur Phencyclidine Scrn Negative Ur Amphetamines Screen Negative U Benzodiazepines Scrn Negative U Oth Cocaine Metabols Negative U Cannabinoids Screen Negative Alcohol, Quantitative 04/16/18 04/16/18 06:35 06:35 WBC RBC Hgb Hct MCV MCH MCHC RDW Plt Count MPV Gran % Lymph % (Auto) [place] % (Auto) Eos % (Auto) Baso % (Auto) Gran # Lymph # (Auto) [place] # (Auto) Eos # (Auto) Baso # (Auto) PT 13.2 H INR 1.14 APTT 28.1 Sodium 141 Potassium 3.8 Chloride 110 H Carbon Dioxide 26 Anion Gap 10 BUN 5 L Creatinine 0.5 L Est GFR ( Amer) > 60 Est GFR (Non-Af Amer) > 60 Random Glucose 86 Calcium 8.5 Magnesium Total Bilirubin 0.7 AST 48 H D ALT 64 H Alkaline Phosphatase 56 Total Protein 6.8 Albumin 3.9 Globulin 2.9 Albumin/Globulin Ratio 1.3 Lipase Urine Color Urine Appearance Urine pH Ur Specific [place] Urine Protein Urine Glucose (UA) Urine Ketones Urine Blood Urine Nitrate Urine Bilirubin Urine Urobilinogen Ur Leukocyte Esterase Urine RBC Urine WBC Ur Epithelial Cells Urine Bacteria Urine Other Salicylates Urine Opiates Screen Urine Methadone Screen Acetaminophen Ur Barbiturates Screen Ur Phencyclidine Scrn Ur Amphetamines Screen U Benzodiazepines Scrn U Oth Cocaine Metabols U Cannabinoids Screen Alcohol, Quantitative Assessment & Plan - Assessment and Plan (Free Text) Assessment: 22 year old female with a past medical history significant for chronic constipation who presented with diffuse abdominal pain. Neurology was consulted after patient had seizure like activity after administration of [place] [facility] [place] Plan: -CT Head without Contrast unremarkable and negative for any acute intracranial pathology Patient seen and case discussed with attending, Dr. Toussaint. Chip Hudson PGY2 - Date & Time Date: 04/16/18 Time: 11:10
[2018-04-16] MEDS ORDERED: Lidocaine PF 2% (5 ml) Inj (For Cardiac Arrhy) ONE (11:47)
[2018-04-16] MEDS ORDERED: Propofol 10 mg/ml Inj (20 ML) ONE (11:47)
[2018-04-16] MEDS ORDERED: Midazolam 2 MG/2 ML VIAL ONE (11:47)
[2018-04-16] MEDS ORDERED: Rocuronium 10 mg/ml (5 ml) ONE ×2 (11:48→12:53)
[2018-04-16] MEDS ORDERED: Lidocaine 1% w Epi 1:100,000 Inj ONE (12:03)
[2018-04-16] MEDS ORDERED: Bupivacaine 0.25% Inj(30mL) IJ ONE ×2 (12:13)
[2018-04-16] MEDS ORDERED: Lidocaine 1% w Epi 1:100,000 Inj IJ ONE ×2 (12:13)
[2018-04-16] MEDS ORDERED: Piperacillin/Tazobact 3.375 gm 100 ML IVPB STA (12:18)
[2018-04-16] MEDS ORDERED: Neostigmine Methylsulfate 3mg/3ml Syringe IV ONE (13:29)
[2018-04-16] MEDS ORDERED: Glycopyrrolate 0.2 mg/ml (2ml vial) ONE (13:29)
[2018-04-16] MEDS ORDERED: HYDROmorphone 0.5 mg/0.5 ml ISec IVP PRN (13:40)
--- NOTE | 2018-04-16 13:40 | PCM.SURG1 ---
Surgeon's Initial Post Op Note - Surgeon's Notes Surgeon: Dr. Capone Open [employer] Developer: Pamela Booth PGY3 Type of Anesthesia: General Endo, Local Pre-Operative Diagnosis: symptomatic cholelithiasis Operative Findings: 1.5cm x 1.5cm x 1.5cm stone Post-Operative Diagnosis: Same Operation Performed: Laparoscopic cholecystectomy Specimen/Specimens Removed: Gallbladder Estimated Blood Loss: EBL {In ML}: 45 Blood Products Given: N/A Drains Used: No Drains Post-Op Condition: Good Date of Surgery/Procedure: 04/16/18 Time of Surgery/Procedure: 13:40
[2018-04-16] MEDS ORDERED: Oxycodone/Acetaminophen 5/325 mg Tab PO PRN ×2 (13:43→13:44)
[2018-04-16] MEDS ORDERED: Lactated Ringer's 1,000 ML IV SCH (13:45)
--- NOTE | 2018-04-16 13:52 | PCM.OP ---
Operative Report - Operative Report Date of Surgery/Procedure: 04/16/18 Time of Surgery/Procedure: 12:00 Surgeon: Elias Capone MD Motor Vehicle Technician: Pamela Booth DO (PGY3 resident) Anesthesia/Sedation: See main Pre-Operative Diagnosis: See main Post-Operative Diagnosis: See main Indication for Surgery: See main Operative Findings: See main Procedure/Operation Description: ANESTHESIA: General endotracheal; 1% lidocaine + 0.25% Marcaine mix local anesthesia PRE-OPERATIVE DIAGNOSIS: Acute calculus cholecystitis POSTOPERATIVE DIAGNOSIS: Acute calculus cholecystitis Indications: This is a 22-year-old female presented to ED with couples days RUQ/epigastric pain due to symptomatic cholelithiasis and acute cholecystitis, with CT evidence of large dilated, fluid filled gallbladder and wall thickening and inflammation; RUQ US showed gallstones and wall edema. Details of HPI in clinical chart. Taken to the operating room for laparoscopic cholecystectomy. Patient understands the risks and benefits of the procedure as documented in the clinic chart but specifically risk of cystic duct leak and common bile duct injury, need for open surgery and has consented to the procedure. OPERATIVE FINDINGS: Significant inflammation in right upper quadrant with adhesions gallbladder to omentum; Dilated, Fluid filled gallbladder with multiple stones. Clips in place on cystic duct and cystic artery at end of case without evidence of bleeding or bile leak. PROCEDURES PERFORMED: 1) Laparoscopic Cholecystectomy DESCRIPTION OF PROCEDURE: The patient was given a preoperative dose of Ancef 20 minutes before the incision. SCD boots were placed for DVT prophylaxis. The patient had an orogastric tube placed in order to empty the stomach after the induction of general anesthesia. Upper and lower body warmer placed to maintain normothermia. No jordan catheter inserted as patient had voided immediately prior to being brought back to OR. Secure straps placed above and bleow the knees. Arms placed on arm boards out at 80 degress. All bony prominences were padded. A timeout was performed prior to incision. The abdomen was prepped and draped in sterile fashion. All skin incisions were made using an 11 blade scalpel after being pre-anesthetized with local anesthesia. In the infraaumbilical midline, a circumlinear incision was made and the umbilical raphe was identified and the fascia was divided between clamps at its base entering the abdomen in an open fashion. A 11-mm trocar was inserted in the abdomen and the abdomen was insufflated to 15 mmHg pressure with CO2. A 5mm 30-degree viewing scope was then inserted and the abdomen was generally inspected and there was not found to be any additional signs of pathology. In the right upper quadrant, two 5-mm ports were placed under direct vision and in the subxiphoid midline, an additional 5mm radially dilating port was placed in similar fashion. There was moderate inflammation in the right upper abdomen and a large dilated gallbladder with stone visible in distal body. The fundus was identified beneath the liver edge and then retracted to the right upper quadrant and the neck of the gallbladder was visualized. There were omental adhesions to the gallbladder that were taken down with a combination of sharp dissection and hook cautery. The peritoneal attachments from the lateral portion of the gallbladder/cystic duct junction were gently dissected and divided to open up the [place]. The [place] was then dissected up onto the liver bed posterior to the gallbladder in order to ensure that this was the cystic duct and not tenting of the common bile duct. The peritoneal attachments on the medial portion of the gallbladder going up to the side of the liver were taken and distal third of gallbladder dissected off the cystic plate. The critical view was obtained. The cystic artery and duct were sequentially then doubly clipped and ligated and the clips were inspected. Once this was completed, the gallbladder was dissected free from the liver bed using electrocautery and placed this in an endo catch bag. This was withdrawn through the umbilical port. The abdomen was reinspected. The clips were in good position on the cystic artery and duct stumps and the abdomen was generally irrigated and drained. The ports were then removed from the abdomen and the abdomen was desufflated with air. The umbilical port was closed with [id number] 0- Vicryl suture x1, skin incisions closed with 4-0 Vicryl sutures, and finally dermabond applied to skin. The patient tolerated the procedure well and was extubated and stable in recovery after the procedure. I was present throughout the entirety of the procedure. Sponge, needle and instrument counts were correct. Estimated Blood Loss: 25mL Complications: none Specimen: gallbladder Discharge & Condition: See main
[2018-04-16 14:01] VITALS: RESP 12; TEMP 98.5
[2018-04-16] MEDS ORDERED: HYDROmorphone 0.5 mg/0.5 ml ISec ONE (14:33)
[2018-04-16 14:59] VITALS: BP 94/56; PULSE 84; O2SAT 97
--- NOTE | 2018-04-16 15:11 | CP.PCM.PCO ---
Addendum Addendum: 04/16/18 15:09 Neurology team attempted to see patient on two separate occasions today but were unable to do so as patient was in surgery. We will attempt to see patient tomorrow in light of this.
[2018-04-16] MEDS: Sodium Chloride 0.9% 1,000 ML IV SCH (18:02)
--- NOTE | 2018-04-16 18:29 | CP.PCM.DIS ---
Provider - Provider Date of Admission: 04/15/18 19:23 Attending physician: Elias Capone MD Consults: 04/15/18 17:30 General Surgery Consult Stat Comment: Consulting Provider: Elias Capone Consulting Physician: Elias Capone Reason for Consult: cholecystitis 04/15/18 19:55 Neurology Consult Stat Comment: Consulting Provider: Aileen Garrett Consulting Physician: Aileen Garrett Reason for Consult: r/o seizure Time Spent in preparation of Discharge (in minutes): 45 Hospital Course - Lab Results Lab Results: Micro Results 04/15/18 14:30 Urine Random Urine Culture - Final No Growth (<1,000 CFU/ML) Most Recent Lab Values WBC 6.1 10^3/uL (4.5-11.0) D 04/16/18 06:35 RBC 4.16 10^6/uL (3.5-6.1) 04/16/18 06:35 Hgb 9.5 g/dL (12.0-16.0) L 04/16/18 06:35 Hct 31.6 % (36.0-48.0) L 04/16/18 06:35 MCV 76.0 fl (80.0-105.0) L 04/16/18 06:35 MCH 22.8 pg (25.0-35.0) L 04/16/18 06:35 MCHC 30.1 g/dl (31.0-37.0) L 04/16/18 06:35 RDW 14.4 % (11.5-14.5) 04/16/18 06:35 Plt Count 191 10^3/uL (120.0-450.0) 04/16/18 06:35 MPV 10.7 fl (7.0-11.0) 04/16/18 06:35 Gran % 67.7 % (50.0-68.0) 04/16/18 06:35 Lymph % (Auto) 26.0 % (22.0-35.0) 04/16/18 06:35 [place] % (Auto) 5.8 % (1.0-6.0) 04/16/18 06:35 Eos % (Auto) 0.2 % (1.5-5.0) L 04/16/18 06:35 Baso % (Auto) 0.3 % (0.0-3.0) 04/16/18 06:35 Gran # 4.12 (1.4-6.5) 04/16/18 06:35 Lymph # (Auto) 1.6 (1.2-3.4) 04/16/18 06:35 [place] # (Auto) 0.4 (0.1-0.6) 04/16/18 06:35 Eos # (Auto) 0.0 (0.0-0.7) 04/16/18 06:35 Baso # (Auto) 0.02 K/mm3 (0.0-2.0) 04/16/18 06:35 PT 13.2 SECONDS (9.4-12.5) H 04/16/18 06:35 INR 1.14 04/16/18 06:35 APTT 28.1 Seconds (25.1-36.5) 04/16/18 06:35 Sodium 141 mmol/L (132-148) 04/16/18 06:35 Potassium 3.8 mmol/L (3.6-5.0) 04/16/18 06:35 Chloride 110 mmol/L (98-107) H 04/16/18 06:35 Carbon Dioxide 26 mmol/L (21-33) 04/16/18 06:35 Anion Gap 10 (10-20) 04/16/18 06:35 BUN 5 mg/dL (7-21) L 04/16/18 06:35 Creatinine 0.5 mg/dl (0.7-1.2) L 04/16/18 06:35 Est GFR ( Amer) > 60 04/16/18 06:35 Est GFR (Non-Af Amer) > 60 04/16/18 06:35 Random Glucose 86 mg/dL (70-110) 04/16/18 06:35 Calcium 8.5 mg/dL (8.4-10.5) 04/16/18 06:35 Magnesium 2.0 mg/dL (1.7-2.2) 04/15/18 15:00 Total Bilirubin 0.7 mg/dL (0.2-1.3) 04/16/18 06:35 AST 48 U/L (14-36) H D 04/16/18 06:35 ALT 64 U/L (7-56) H 04/16/18 06:35 Alkaline Phosphatase 56 U/L (38-126) 04/16/18 06:35 Total Protein 6.8 g/dL (5.8-8.3) 04/16/18 06:35 Albumin 3.9 g/dL (3.0-4.8) 04/16/18 06:35 Globulin 2.9 gm/dL 04/16/18 06:35 Albumin/Globulin Ratio 1.3 (1.1-1.8) 04/16/18 06:35 Lipase 104 U/L (23-300) 04/15/18 15:00 Urine Color Yellow (YELLOW) 04/15/18 14:30 Urine Appearance Clear (CLEAR) 04/15/18 14:30 Urine pH 7.0 (4.7-8.0) 04/15/18 14:30 Ur Specific [place] 1.020 (1.005-1.035) 04/15/18 14:30 Urine Protein Negative mg/dL (<30 mg/dL) 04/15/18 14:30 Urine Glucose (UA) Negative mg/dL (NEGATIVE) 04/15/18 14:30 Urine Ketones Negative mg/dL (NEGATIVE) 04/15/18 14:30 Urine Blood Trace-lysed (NEGATIVE) H 04/15/18 14:30 Urine Nitrate Negative (NEGATIVE) 04/15/18 14:30 Urine Bilirubin Negative (NEGATIVE) 04/15/18 14:30 Urine Urobilinogen 0.2 E.U./dL (<1 E.U./dL) 04/15/18 14:30 Ur Leukocyte Esterase Negative Foreign/uL (NEGATIVE) 04/15/18 14:30 Urine RBC 2 - 5 /hpf (0-2) H 04/15/18 14:30 Urine WBC 0 - 2 /hpf (0-6) 04/15/18 14:30 Ur Epithelial Cells 4 - 5 /hpf (0-5) 04/15/18 14:30 Urine Bacteria Mod /hpf (NONE) 04/15/18 14:30 Urine Other Uyeast /hpf 04/15/18 14:30 Salicylates < 1 mg/dL (2.0-20.0) L 04/15/18 15:00 Urine Opiates Screen Negative (NEGATIVE) 04/15/18 17:03 Urine Methadone Screen Negative (NEGATIVE) 04/15/18 17:03 Acetaminophen < 10.0 ug/ml (10.0-20.0) L 04/15/18 15:00 Ur Barbiturates Screen Negative (NEGATIVE) 04/15/18 17:03 Ur Phencyclidine Scrn Negative (NEGATIVE) 04/15/18 17:03 Ur Amphetamines Screen Negative (NEGATIVE) 04/15/18 17:03 U Benzodiazepines Scrn Negative (NEGATIVE) 04/15/18 17:03 U Oth Cocaine Metabols Negative (NEGATIVE) 04/15/18 17:03 U Cannabinoids Screen Negative (NEGATIVE) 04/15/18 17:03 Alcohol, Quantitative < 10 mg/dL (0-10) 04/15/18 15:00 - Hospital Course Hospital Course: HPI: 22F w. hx of chronic constipation for past 4 yrs presents to ED w. diffuse abdominal pain more prominent in the epigastric area x 1 week. She states that the pain is aggravated by diet. No relation to fatty vs non-fatty foods. She states that she does have nausea, but this is only in the AM. She has forced herself to vomit in attempts to alleviate the nausea, but it has minimal effect. She states that she does have constipation and takes stool softeners intermittently. Last BM was normal. She denies F/C. LMP was March 30. She states that it was normal. She states that she does have a UTI for which she is taking macrobid. She is currently asymptomatic and has no urinary complaints. In ED she had CT-A/P which showed questionable findings of cholecystitis in addition to ruptured ovarian cysts. Also, pt developed seizure like activity in ED after receiving toradol. Pt is seen by neurologist. US showed thicken GB wall and pericholecystic fluids. Pt is taken to OR for lap elroy. TOlerated it well. Pain controlled. Tolerated diet. Discharge Exam - Head Exam Head Exam: ATRAUMATIC, NORMOCEPHALIC - Eye Exam Eye Exam: EOMI, Normal appearance, PERRL Pupil Exam: NORMAL ACCOMODATION, PERRL - Respiratory Exam Respiratory Exam: NORMAL BREATHING PATTERN - Cardiovascular Exam Cardiovascular Exam: REGULAR RHYTHM - GI/Abdominal Exam GI & Abdominal Exam: Soft. absent: Distended, Firm, Guarding, Hernia Additional comments: Incisions C/D/I - Neurological Exam Neurological exam: Alert, CN II-XII Intact, Normal Gait, Oriented x3, Reflexes Normal - Psychiatric Exam Psychiatric exam: Normal Affect, Normal Mood - Skin Skin Exam: Dry, Intact, Normal Color, Warm Discharge Plan - Discharge Medications Prescriptions: Docusate Sodium [Colace] 100 mg PO DAILY #10 capsule oxyCODONE/Acetaminophen [Percocet 5/325 mg Tab] 1 ea PO Q4 #15 tab - Follow Up Plan Condition: IMPROVED Disposition: HOME/ ROUTINE Instructions: Cholecystitis (DC), Cholecystitis (GEN) Additional Instructions: Follow up at Dr. Capone's office in 2 weeks. OK to shower tomorrow. Keep glue on. No heavy lifting for 1 month Ok to return to work next week. Referrals: Elias Capone MD [Staff Provider] -
== END 2018-04-16 21:15 | disposition home or self-care (01) | DRG 493 ==
LOC: ED 13:24 → ERH 19:23 → 5RNO 22:47
PROVIDERS: ADMIT Surgery; ATTEND Surgery
PROC: 0FT44ZZ Resection of Gallbladder, Percutaneous Endoscopic Approach (ICD-10-PCS; principal; 2018-04-16 13:30)
DX: K80.00 Calculus of gallbladder with acute cholecystitis without obstruction (principal); N39.0 Urinary tract infection, site not specified; R56.9 Unspecified convulsions; K59.09 Other constipation; T39.8X5A Adverse effect of other nonopioid analgesics and antipyretics, not elsewhere classified, initial encounter; K66.0 Peritoneal adhesions (postprocedural) (postinfection)